=== PATIENT | female | born 1985 ===

== ENCOUNTER 2018-01-27 16:17 | Emergency (ER) | payer MEDICAID, OTHER ==
[2018-01-27 16:17] VITALS: BMI 28.3
[2018-01-27 16:25] VITALS: O2SAT 100
[2018-01-27] MEDS ORDERED: Sodium Chloride 0.9% 1,000 ML IV STA (17:13)
--- NOTE | 2018-01-27 17:28 | ED PDOC ---
HPI: Headache Time Seen by Provider: 01/27/18 17:13 Chief Complaint (Nursing): Headache Chief Complaint (Provider): Headache History Per: Patient History/Exam Limitations: no limitations Onset/Duration Of Symptoms: Days (x3) Current Symptoms Are (Timing): Still Present Additional Complaint(s): 32 year old female arrives to ED with a complaint of left-sided headache that worsens with neck movements for 3 days. She reports associated sensitivity to light and sound. She denies any vomiting or nausea. Patient states she took Excedrin this morning with minimal relief. Of note, she reports experiencing similar symptoms in the past but unsure if she had migraines. Past Medical History Reviewed: Historical Data, Nursing Documentation, Vital Signs Vital Signs: Last Vital Signs Temp 98.4 F 01/27/18 16:21 Pulse 72 01/27/18 16:21 Resp 16 01/27/18 16:21 BP 107/76 01/27/18 16:21 Pulse Ox 100 01/27/18 16:21 - Medical History PMH: No Chronic Diseases - Surgical History Surgical History: Appendectomy - Family History Family History: States: Unknown Family Hx - Social History Current smoker - smoking cessation education provided: No Ex-Smoker (has not smoked in the last 12 months): No Alcohol: None Drugs: Denies - Immunization History Hx Tetanus Toxoid Vaccination: No Hx Influenza Vaccination: No Hx Pneumococcal Vaccination: No - Home Medications Home Medications: Ambulatory Orders Medication Instructions Recorded Vitamins6 [ 1 tab PO DAILY #30 tab 02/08/14 Vitamins] Ferrous Sulfate [Feosol] 325 mg PO BID #0 tab 05/02/15 Ibuprofen [Motrin Tab] 600 mg PO Q6 PRN #0 tab 05/02/15 Sennosides A and B [Senokot Tab] 17.2 mg PO HS #0 tab 05/02/15 Ibuprofen [Motrin] 600 mg PO Q8 PRN #21 tab 01/27/18 - Allergies Allergies/Adverse Reactions: Allergies Allergy/AdvReac Type Severity Reaction Status Date / Time aspirin Allergy RASH Verified 01/27/18 16:21 Review of Systems ROS Statement: Except As Marked, All Systems Reviewed And Found Negative Eyes: Positive for: Other (light and sound sensitive) Gastrointestinal: Negative for: Nausea, Vomiting Neurological: Positive for: Headache (left-sided) Physical Exam - Reviewed Nursing Documentation Reviewed: Yes Vital Signs Reviewed: Yes - Physical Exam Appears: Positive for: Non-toxic, No Acute Distress Head Exam: Positive for: ATRAUMATIC, NORMAL INSPECTION, NORMOCEPHALIC Skin: Positive for: Normal Color Eye Exam: Positive for: EOMI, Normal appearance, PERRL Neck: Positive for: Pain On Movement Of Neck (left-sided, laterally) Back: Negative for: Other (c-spine bony tenderness or neurorigidity) Neurologic/Psych: Positive for: Alert (x3), Oriented. Negative for: Motor/ Sensory Deficits - Laboratory Results Urine POC: Negative - ECG O2 Sat by Pulse Oximetry: 100 (RA) Pulse Ox Interpretation: Normal - Progress ED Course And Treament: reglan 10 mg iv x 1 dose ns 1 liter wide open Patient noted with resolution of headache. Medical Decision Making Medical Decision Makin Initial Plan: * Reglan 10mg IVP * Urine * IV fluids Scribe Attestation: Documented by Supriya Buckner, acting as a scribe for Eliseo Kulkarni PA-C. Provider Scribe Attestation: All medical record entries made by the Scribe were at my direction and personally dictated by me. I have reviewed the chart and agree that the record accurately reflects my personal performance of the history, physical exam, medical decision making, and the department course for this patient. I have also personally directed, reviewed, and agree with the discharge instructions and disposition Disposition - Clinical Impression Clinical Impression: Migraine - Patient ED Disposition Is Patient to be Admitted: No - Disposition Referrals: [facility] [Outside] Disposition: Routine/Home Disposition Time: 19:34 Condition: FAIR Prescriptions: Ibuprofen [Motrin] 600 mg PO Q8 PRN #21 tab PRN Reason: Pain, Moderate (4-7) Instructions: Migraine Headaches in Adults Forms: [facility] ED School/Work Excuse Print Language: [place]
[2018-01-27 19:57] VITALS: BP 108/63; PULSE 63; RESP 18; TEMP 98.3
== END 2018-01-27 19:59 | disposition home or self-care (01) ==
LOC: H.ER 16:17
DX: G43.909 Migraine, unspecified, not intractable, without status migrainosus (principal)
CPT/HCPCS: 81025; 96361; 96374; 99285; J2765; J7030